=== PATIENT | male | born 1985 | race Caucasian/White ===

== ENCOUNTER 2019-08-10 15:34 | Emergency (ER) | payer BC, SELFPAY ==
[2019-08-10 16:20] VITALS: BP 136/71; PULSE 114; RESP 16; TEMP 37.6; O2SAT 98
--- NOTE | 2019-08-10 16:39 | ED.URI ---
HPI - URI/Sore Throat General Chief Complaint: Upper Respiratory Infection Stated Complaint: Cold/Flu Time Seen by Provider: 08/10/19 16:39 Source: patient and family History of Present Illness HPI Narrative: Patient presents with sore throat and chest congestion. Patient denies any shortness of breath no chest pain. Patient states his girlfriend and son were both positive for strep last week and he is worried that he may have strep throat. No drooling no trouble swallowing. Patient is not taking thing [id number] for his symptoms. MD elicited complaint: fever and sore throat Related Data Allergies Allergy/AdvReac Type Severity Reaction Status Date / Time chloral hydrate Allergy Mild Verified 10/17/08 14:37 Review of Systems Review of Systems: Narrative: CONSTITUTIONAL: Denies fever, chills, or sweats. EYES: Denies visual changes, redness, or discharge. ENT: Denies rhinorrhea, congestion, or otalgia. Reports sore throat CARDIOVASCULAR: Denies chest pain, palpitations, or edema. RESPIRATORY: Denies cough or dyspnea. GASTROINTESTINAL: Denies abdominal pain, nausea, vomiting, or diarrhea. GENITOURINARY: Denies dysuria or hematuria. SKIN: Denies rash or itching. MUSCULOSKELETAL: Denies back pain, joint pain, or myalgia. NEUROLOGIC: Denies headache, numbness, or weakness. PSYCHIATRIC: Denies anxiety or depression. All systems reviewed & are unremarkable except as noted in HPI and below PMFSH Family History Family History Father Family history of Alzheimer's disease Social History Social History Smoking status: Heavy tobacco smoker Alcohol intake: current Comments At time of signature, agree with nursing past medical, surgical, social and family history. There is no relevant family history pertinent to the presenting complaint Exam Narrative: Exam Narrative: GENERAL: Well-appearing, well-nourished, and in no acute distress. HEAD: Normocephalic, atraumatic. EYES: PERRLA and EOMI. ENT: Nares clear, no rhinorrhea or epistaxis. Mucous membranes moist. Mild pharyngeal erythremia no exudate no trismus no angioedema able to open mouth fully NECK: Supple. CHEST: Clear to auscultation. No respiratory distress. HEART: Regular rate and rhythm. No murmur heard. Normal peripheral pulses. ABDOMEN: Soft, nontender, nondistended, normal active bowel sounds. EXTREMITIES: Normal range of motion. No edema. SKIN: Warm, dry, no rash. NEURO: No focal deficits. Alert and oriented x3. [place] Coma Scale Eye Opening: Spontaneous 4 Usha Coma Scale Motor: Obeys Commands 6 [place] Coma Scale Verbal: Oriented 5 [place] Coma Scale Total 15 Course Vital Signs Vital signs: Vital Signs Temperature 37.6 C 08/10/19 16:20 Pulse Rate 114 H 08/10/19 16:20 Respiratory Rate 16 08/10/19 16:20 Blood Pressure 136/71 08/10/19 16:20 Pulse Oximetry 98 08/10/19 16:20 Temperature 37.6 C 08/10/19 16:20 Pulse Rate 114 H 08/10/19 16:20 Respiratory Rate 16 08/10/19 16:20 Blood Pressure 136/71 08/10/19 16:20 Pulse Oximetry 98 08/10/19 16:20 Please WILDER schedule a followup visit with your personal physician for further evaluation and treatment. Including recheck and discussion of your blood pressure. If your symptoms persist, change or worsen significantly before you can contact your personal physician then please, without delay, go to the emergency department for further evaluation MDM - URI/Sore Throat Differential Diagnosis Differential diagnosis: Likely upper respiratory infection, otitis media, sinusitis, viral infection, influenza and pharyngitis Lab Data Labs: Strep Screen Presumptive Negative *(Reference Range: Negative)* Critical Care Time Critical Care Time Critical Care Time: No Discharge Plan Discharge Clinical Impression: Pharyngitis, Upper respiratory infec
== END 2019-08-10 16:53 | disposition home or self-care (01) ==
PROVIDERS: Emergency Provider Nurse Practitioner Family
DX: J02.9 Acute pharyngitis, unspecified (principal)
CPT/HCPCS: 87081; 87880; 99203; G0463

== ENCOUNTER 2022-12-14 09:34 | Emergency (ER) | payer OTHER, SELFPAY ==
[2022-12-14 09:42] VITALS: BP 109/75; PULSE 87; RESP 14; TEMP 36.6; O2SAT 100
--- NOTE | 2022-12-14 10:05 | ED.DENTAL ---
HPI - Dental/Oral General Chief complaint: Dental/Oral Stated complaint: Toothache History of Present Illness HPI Narrative: Patient presents with pain to his left lower tooth. Patient has not seen a dentist in some time and requests a list of dentists in the area. No facial swelling no trouble swallowing no drooling no fever no shortness of breath no cough. Related Data Allergies Allergy/AdvReac Type Severity Reaction Status Date / Time chloral hydrate Allergy Mild Verified 10/17/08 14:37 Review of Systems Review of Systems: CONSTITUTIONAL: Denies fever, chills, or sweats. EYES: Denies visual changes, redness, or discharge. ENT: Denies rhinorrhea, congestion, sore throat, or otalgia. CARDIOVASCULAR: Denies chest pain, palpitations, or edema. RESPIRATORY: Denies cough or dyspnea. GASTROINTESTINAL: Denies abdominal pain, nausea, vomiting, or diarrhea. GENITOURINARY: Denies dysuria or hematuria. SKIN: Denies rash or itching. MUSCULOSKELETAL: Denies back pain, joint pain, or myalgia. NEUROLOGIC: Denies headache, numbness, or weakness. PSYCHIATRIC: Denies anxiety or depression. [facility] Family History Family History Father Family history of Alzheimer's disease Social History Social History Smoking status: Heavy tobacco smoker Alcohol intake: current Comments At time of signature, agree with nursing past medical, surgical, social and family history. There is no relevant family history pertinent to the presenting complaint Exam Narrative: GENERAL: Well-appearing, well-nourished, and in no acute distress. HEAD: Normocephalic, atraumatic. EYES: PERRLA and EOMI. ENT: Nares clear, no rhinorrhea or epistaxis. Mucous membranes moist.tooth # 19 NO SALLY APICAL SWELLING, TOOTH TENDER TO PALPATION. NO FACIAL SWELLING. NO TRISMUS. ABLE TO OPEN MOUTH FULLY. NO NECK SWELLING OR JIMENEZ'S ANGINA. NO ABSCESS TO BE DRAINED. no drooling, trismus, facial asymmetry or significant neck swelling NECK: Supple. CHEST: Clear to auscultation. No respiratory distress. HEART: Regular rate and rhythm. No murmur heard. Normal peripheral pulses. ABDOMEN: Soft, nontender, nondistended, normal active bowel sounds. EXTREMITIES: Normal range of motion. No edema. SKIN: Warm, dry, no rash. NEURO: No focal deficits. Alert and oriented x3. [place] Coma Scale Eye Opening: Spontaneous 4 [place] Coma Scale Motor: Obeys Commands 6 Usha Coma Scale Verbal: Oriented 5 [place] Coma Scale Total 15 Course Course Level of Care: Express Care Visit Vital Signs Vital signs: Vital Signs Temperature 36.6 C 12/14/22 09:42 Pulse Rate 87 12/14/22 09:42 Respiratory Rate 14 12/14/22 09:42 Blood Pressure 109/75 12/14/22 09:42 Pulse Oximetry 100 12/14/22 09:42 Oxygen Delivery Room Air 12/14/22 09:42 Temperature 36.6 C 12/14/22 09:42 Pulse Rate 87 12/14/22 09:42 Respiratory Rate 14 12/14/22 09:42 Blood Pressure 109/75 12/14/22 09:42 Pulse Oximetry 100 12/14/22 09:42 Oxygen Delivery Room Air 12/14/22 09:42 Discharge Plan Discharge Clinical Impression: Toothache, Dental caries, Dental abscess Patient Disposition: Home, Self-Care Condition: Stable Instructions: Antibiotic Form, Dental Abscess (ED) Additional Instructions: Avoid temperature extremes May apply heat or ice to the face Gentle brushing and flossing Antibiotic as directed Tylenol for lesser pain Use ibuprofen regularly Use the medication as provided for severe pain--caution each tablet contains 325 mg of Tylenol--the maximum dose of Tylenol is 4000 mg in 24 hours. This medication may cause constipation consider starting a laxative at this time Follow-up with the dentist as soon as possible--see the list provided -If you have any worsening of symptoms or any other concerns please go to the ED immediately. Prescriptio
== END 2022-12-14 10:14 | disposition home or self-care (01) ==
PROVIDERS: Emergency Provider Nurse Practitioner Family; PCP Internal Medicine
DX: K08.89 Other specified disorders of teeth and supporting structures (principal); K02.9 Dental caries, unspecified; K04.7 Periapical abscess without sinus; F17.200 Nicotine dependence, unspecified, uncomplicated
CPT/HCPCS: 99213; G0463

== ENCOUNTER 2024-10-07 11:28 | Emergency (ER) | payer BC, SELFPAY ==
--- OUTSIDE RECORDS SUMMARY | 2024-10-07 11:30 | XMS_ITS | Clinical Summary ---
Author Organization [facility] Address [address] [address] Phone Care Team Providers Care Chemistry Quality Control Technician Name Role Phone Je Miranda MD Primary Care Provider [phone] Zev Munguia MD Unavailable Allergies No known active allergies Medications ciclopirox (PENLAC) 8 % Solution Apply to affected toe nails at bedtime as directed 6.6 mL 11 Active Additional Information Patient not taking.Reported on 10/07/2022 Active Problems Problem Noted Date Diagnosed Date History of alcohol abuse 02/04/2022 Gastroesophageal reflux disease 02/04/2022 Generalized abdominal pain 12/15/2021 Family History Medical History Relation Name Comments Diabetes Father Hypertension Father No Known Problems Half-Brother Suicide Attempts Maternal Grandfather Cancer Maternal Grandmother abdomen Alcohol Abuse Mother Cancer Paternal Grandfather Colon Cancer Paternal Grandfather Heart Surgery Paternal Grandfather Skin Cancer Paternal Grandfather Other-comment Paternal Grandmother Major colon surgery No Known Problems Son Relation Name Status Comments Father Alive Half-Brother Alive Maternal Grandfather Maternal Grandmother Mother Paternal Grandfather Paternal Grandmother Son Alive Social History Tobacco Use Types Packs/Day Years Used Date Smoking Tobacco: Former Cigarettes 1 21.4 2 000 - 12/15/2020 Smokeless Tobacco: Never Tobacco Cessation:Counseling Given: Not Answered Alcohol Use Standard Drinks/Week Comments Not Currently 0 (1 standard drink = 0.6 oz pur e alcohol) quit 2019- drank heavily PHQ-2 Answer Date Recorded Total Score - Questions 1-9 0 12/03 Sexually Active Control Partners Comments Yes Sex and Gender Information Value Date Recorded Sex Assigned at Not on file Legal Sex Male 9:31 PM CDT Gender Identity Not on file Sexual Orientation Not on file Last Filed Vital Signs Vital Sign Reading Time Taken Comments Blood Pressure 124/76 10/07/2022 8:27 AM CDT Pulse 90 10/07/2022 8:27 AM CDT Temperature 36.5 C (97.7 F) 10/07/2022 8:27 AM CDT Respiratory Rate 14 05/13/2022 12:34 PM SKEIN WASHER Oxygen Saturation 98% 10/07/2022 8:27 AM CDT Inhaled Oxygen Concentration - - Weight 63 kg (139 lb) 10/07/2022 8:27 AM CDT Height 175.3 cm (5' 9 ) 10/07/2022 8:27 AM CDT Body Mass Index 20.53 10/07/2022 8:27 AM CDT Plan of Treatment Health Maintenance Due Date Last Done Comments TdaP Immunization 1986 Hepatitis B Immunization (1 of 3 - 19+ 3-dose series) 2005 Influenza Immunization (#1) 2024 SARS-COV-2 Immunization (2023- season) 2024 01/18/2021, 12/28/2020 Colonoscopy High Risk 05/13/2032 05/13/2022 Colonoscopy 05/13/2032 05/13/2022 Colorectal Cancer Screening 05/13/2032 Respiratory Syncytial Virus (RSV) Immunization (Adult) (1 - 1-dose 75+ series) 2061 Hepatitis C Virus (HCV) Screening Completed 02/04/2022 Meningococcal Immunization (ACWY) Aged Out No longer eligible b ased on patient's age to complete this topic Pneumococcal Immunization Combined Aged Out No longer eligible b ased on patient's age to complete this topic Rotavirus Immunization Aged Out No lo nger eligible based on patient's age to complete this topic Procedures Procedure Name Priority Date/Time Associated Diagnosis Comments HEPATITIS PANEL ACUTE (AHP) Routine 02/04/2022 9:19 AM CDT Generalized abdominal pain from Last 3 Months or Most Recently Relevant to Health Maintenance Results * HEPATITIS PANEL ACUTE (AHP) (02/04/2022 9:19 AM CDT) HEPATITIS A IGM ANTIBODY NON DETECTED NON DETECTED [facility] ARCH [id number] 02/04/2022 3:04 PM CDT [facility] Comment: IGM Antibodies to HAV not detected. Does not exclude early acute or recovered HAV infection. HEP B CORE AB (IGM) NON DETECTED NON DETECTED [facility] ARCH [id number] B 02/04/2022 3:04 PM CDT [facility] Comment:IGM anti-HBC not det ected. Does not exclude the possibility of exposure to or infection with HBV. HEPATITIS B SURFACE ANTIGEN NON DETECTED NON DETECTED [facility] ARCH [id number] B 02/04/2022 3:04 PM CDT [facility] Comment:A nonreactive test r esult does not exclude the possibility of exposure to or infection with Hepatitis B virus. A nonreactive test result in individuals with prior exposure to hepatitis B may be due to antigen levels below the detection limit of this assay or lack of antigen reactivity to the antibodies in this assay. hepatitis C antibody 0.10 <1 S/CO [facility] ARCH [id number] 02/04/2022 3:04 PM CDT [facility] Comment: Signal/Cutoff ratio < 0.79 is Nondetected Signal/Cutoff ratio 0.80-0.99 is Grayzone Signal/Cutoff ratio > 0.99 is Detected Supplemental assays are recommended if signal/cutoff ratio is >/=1.00. Signal/cutoff ratio result >/= 5.00 is 97% predictive of positivity for recombinant immunoblot assay (RIBA) and will be reported to the [place] Department of Public Health as required. Blood Venipuncture / Unknown 02/04/2022 9:19 AM CDT 02/04/2022 9:23 AM CDT us Albertina Jain PAC HEMATOLOGY ORDERABLES Fin al Result [facility] [address] [place] [address], [place] from Last 3 Months or Most Recently Relevant to Health Maintenance Insurance MEDICAID AETNA [facility] Care Teams Chemistry Quality Control Technician Relationship Specialty Start Date End Date Je Miranda MD [address] [place] [address] PCP - General Internal Medicine 12/03/21 Zev Munguia MD #[address] [address] Consulting Physician Colon and Rectal Surgery 09/25/22
--- OUTSIDE RECORDS SUMMARY | 2024-10-07 11:30 | XMS_ITS | Clinical Summary ---
Author Organization [facility] Address [address] [place] [address] Care Team Providers Care Finished Yarn Examiner Name Role Phone Unavailable Primary Care Provider Unavailabl e Source Comments [facility],non-owned Affiliates and Associated Physician Practices is amultiple site organization consisting of ambulatory clinics and hospital sitesin [place], [place], [place] and [place]. This disclosure is being madepursuant to the Care Everywhere program and may not contain all information available regarding this patient. Last updated 18.[facility] Social History Tobacco Use Types Packs/Day Years Used Date Smoking Tobacco: Never Assessed Sex and Gender Information Value Date Recorded Sex Assigned at Not on file Gender Identity Not on file Sexual Orientation Not on file Plan of Treatment Health Maintenance Due Date Last Done Comments HIV SCREENING 2001 HEPATITIS C SCREENING 10/16/2004 DTAP/TDAP/TD VACCINES (1 - Tdap) 2005 HEPATITIS B VACCINE (1 of 3 - 19+ 3-dose series) 2005 COVID-19 VACCINE ( - 2023-2 5 season) 2024 DEPRESSION SCREENING 07/05/2024 INFLUENZA VACCINE (Season Ended) 2025 ZOSTER VACCINE (1 of 2) 2036 HIB VACCINE Aged Out No longer eligi ble based on patient's age to complete this topic HPV VACCINE Aged Out No longer eligi ble based on patient's age to complete this topic MENINGOCOCCAL (Group B) VACC INE SHARED DECISION-MAKING Aged Out No longer eligibl e based on patient's age to complete this topic MENINGOCOCCAL GROUPS A/C/Y/W VACCINE Aged Out No longer eligible b ased on patient's age to complete this topic PNEUMOCOCCAL VACCINE Aged Out No long er eligible based on patient's age to complete this topic
[2024-10-07 11:32] VITALS: BP 110/68; PULSE 85; RESP 20; TEMP 36.7; O2SAT 99
--- NOTE | 2024-10-07 12:11 | ED.DENTAL ---
HPI - Dental/Oral General Chief complaint: Dental/Oral Stated complaint: Toothache Source: patient Mode of arrival: ambulatory Limitations: no limitations History of Present Illness HPI Narrative: Patient presents for evaluation of left lower dental pain. Symptom onset 4 days ago. Pain is constant, throbbing, 6/10 in severity. He has been taking ibuprofen for symptoms. This seems to help. He does vape. He tried calling his dentist but could not get an appointment for 2-3 weeks from now. Fever, chills, nausea, vomiting. Related Data Allergies Allergy/AdvReac Type Severity Reaction Status Date / Time chloral hydrate Allergy Mild Unknown Verified 10/07/24 11:38 Review of Systems Review of Systems: CONSTITUTIONAL: Denies fever, chills, or sweats. EYES: Denies visual changes, redness, or discharge. ENT: Reports left lower dental pain. Denies rhinorrhea, congestion, sore throat, or otalgia. CARDIOVASCULAR: Denies chest pain, palpitations, or edema. RESPIRATORY: Denies cough or dyspnea. GASTROINTESTINAL: Denies abdominal pain, nausea, vomiting, or diarrhea. GENITOURINARY: Denies dysuria or hematuria. SKIN: Denies rash or itching. MUSCULOSKELETAL: Denies back pain, joint pain, or myalgia. NEUROLOGIC: Denies headache, numbness, dizziness, or weakness. PSYCHIATRIC: Denies anxiety or depression. [facility] Past Medical History Medical History No pertinent past medical history Surgical History Surgical History History of umbilical hernia repair Family History Family History Father Family history of Alzheimer's disease Social History Social History Smoking status: Current every day smoker Tobacco type: e-cigarettes/vaping Alcohol intake: current Gender identity (if verbalized by the patient): Male Sexual Orientation (if Verbalized by the Patient): Straight or Heterosexual Spiritual care concerns: No Exam Narrative: GENERAL: Well-appearing, well-nourished, and in no acute distress. HEAD: Normocephalic, atraumatic. EYES: PERRLA and EOMI. ENT: Nares clear, no rhinorrhea or epistaxis. Mucous membranes moist. Oropharynx without tonsillar hypertrophy exudate or other lesions. There is swelling and tenderness in the gumline adjacent to tooth #17. Bilateral TMs pearly dalal nonbulging NECK: Supple. No adenopathy or masses. No carotid bruits or JVD CHEST: Clear to auscultation. No respiratory distress. No wheezes rales or rhonchi HEART: Regular rate and rhythm. No murmur heard. Normal peripheral pulses. ABDOMEN: Soft, nontender, nondistended, normal active bowel sounds. EXTREMITIES: Normal range of motion. No edema. SKIN: Warm, dry, no rash. NEURO: No focal deficits. Alert and oriented x3. PSYCH: Normal mood and affect. Course Course Emergency Course: This is a 38-year-old male who presented for evaluation of left lower dental pain. Needle aspiration was performed. Patient tolerated well. Will discharge with penicillin and ibuprofen. Follow-up with dentist. Go to the ER for worsening symptoms. Patient in agreement with plan of care. Level of Care: Express Care Visit Vital Signs Vital signs: Vital Signs Temperature 36.7 C 10/07/24 11:32 Pulse Rate 85 10/07/24 11:32 Respiratory Rate 20 10/07/24 11:32 Blood Pressure 110/68 10/07/24 11:32 Pulse Oximetry 99 10/07/24 11:32 Oxygen Delivery Room Air 10/07/24 11:32 Temperature 36.7 C 10/07/24 11:32 Pulse Rate 85 10/07/24 11:32 Respiratory Rate 20 10/07/24 11:32 Blood Pressure 110/68 10/07/24 11:32 Pulse Oximetry 99 10/07/24 11:32 Oxygen Delivery Room Air 10/07/24 11:32 Procedures Abscess I/D oral: Date of Incision: 10/07/24 Time of Incision: 12:14 Side (if applicable): left Sedation/analgesia: none Local Anesthetic: none Technique: needle aspiration Amount of fluid expressed (mL): 2 Irrigation: No Packing used?: none I&D Results: Blood Discharge Plan Discharge Clinical Impression: Abscess, dental Patient Disposition: Home, Self-Care Condition: Stable Instructions: Antibiotic Form, Dental Abscess (ED) Patient Language: Albanian Prescriptions: New penicillin V potassium 500 mg tablet 500 mg PO Q6H 10 Days Qty: 40 0RF ibuprofen 800 mg tablet 800 mg PO TID PRN (Reason: pain) Qty: 30 0RF Follow-up/Referrals: Ugo Boswell MD [Physician] - Time of Disposition: 12:10
== END 2024-10-07 12:13 | disposition home or self-care (01) ==
PROVIDERS: Emergency Provider Nurse Practitioner
DX: K04.7 Periapical abscess without sinus (principal); F17.290 Nicotine dependence, other tobacco product, uncomplicated
CPT/HCPCS: 41800; 99213; G0463